=== PATIENT | female | born 1960 | race African-American/Black ===

== ENCOUNTER 2017-06-10 19:00 | Emergency (ER) | payer BC ==
--- NOTE | ~2017-06-10 | CR173 ---
[facility] A Service of [facility] & [facility] RADIOLOGY TEXT RESULTS PATIENT: VINOD ARRINGTON LOCATION: CFTX : 64 UNIT #: [id number] AGE: [address]: Rhina Houston APRN SEX: F ORDER DR: [id number] [facility] [address]. [place], [place] [address] [id number] MR#: [id number] Acc #: [id number] NAME: VINOD ARRINGTON. : 1960 SEX: F STUDY DATE/TIME: 06/10/2017 19:48 UNIT: [facility] ROOM: STUDY DESCRIPTION: CR Knee 3 Views Rt Attending Physician: Rhina Houston A.P.R.N. Ordering Physician: Rhina Houston A.P.R.N. Primary Care Physician: Nick Hussein M.D. MEDICAL IMAGING REPORT This report is preliminary unless electronic signature is present EXAM Right knee, 06/10/2017. HISTORY 56-year-old female with right knee pain and swelling beginning 9 days ago. COMPARISON Right knee, 03/07/2015. FINDINGS Three views of the right knee demonstrate no acute fracture or dislocation. No joint effusion. Joint spaces are adequately maintained. IMPRESSION Unremarkable right knee. Dictated by... Jeffry Guzman M.D. THIS IS AN ELECTRONICALLY VERIFIED REPORT Jeffry Guzman M.D. at 06/11/2017 3:59 PM SARTHAK/alberto TD: 06/11/2017 05:37 JOB #: [id number] MEDICAL IMAGING REPORT Page 1 of 1 COPY
[~2017-06-10 19:00] MED LIST: ASPIRIN81 M1 PO; ASPIRIN81 M2 PO; ATENOLOL25 MG PO; CLONAZEPAM0.5 MG PO; CLONIDINE HCL0.1 MG PO; CLONIDINE PO; FLONASE 0.05% N16 GM; HYDROCHLOROTHIA25 MG PO; KLONOPIN0.5 MG PO; LISINOPRIL10 MG PO; LORTAB 5/500 TA1 TA1 PO; MEDI-MECLIZINE25 M1 PO; MEDROL PO; MEDROL4 MG/DOSE- PO; MOBIC15 MG PO; MOTRIN400 MG PO; MULTIVITAMIN1 UDCAP; NICOTINE TRANSD21 MG EXT; PANTOPRAZOLE SO40 MG PO; PEN-VEE K PO; PRILOSEC20 MG PO; TENORMIN25 MG PO; TRAMADOL HCL50 M1 PO; TRIAMCINOLONE AC1 GM; ZANTAC150 MG PO; ZOFRANODT PO
== END 2017-06-10 20:50 | disposition home or self-care (01) ==
LOC: CED 19:00 → CFTX 19:00
DX: M25.561 Pain in right knee (principal); I10 Essential (primary) hypertension; K21.9 Gastro-esophageal reflux disease without esophagitis; F17.210 Nicotine dependence, cigarettes, uncomplicated; Z88.6 Allergy status to analgesic agent
CPT/HCPCS: 29530; 73562; 99283